=== PATIENT | female | born 1995 | race Caucasian/White ===

== ENCOUNTER → 2017-10-31 03:28 | Observation (INO) ==
[2017-10-31 01:51] LABS: Bilirubin,Urine Small (Negative); Blood,Urine Negative (Negative); Clarity,Urine Cloudy (Clear); Color,Urine Yellow (Yellow); Glucose,Urine (UA) Normal (Normal); Ketones,Urine 15 mg/dL (Negative); Leukocyte Esterase,Urine Negative (Negative); Nitrite,Urine Negative (Negative); Protein,Urine Trace mg/dL (Neg-Trace); Specific Gravity,Urine 1.029 (1.010-1.025); Urobilinogen,Urine Normal (Normal)
[2017-10-31 01:53] LABS: Bacteria,Urine Few per hpf (None-Few); Hyaline Casts,Urine None Seen per lpf (None-Few); Squamous Epithelial Cell,Urine Many per lpf (None-Few)
[2017-10-31 02:03] LABS: Calcium Oxalate Crystals,Urine Present
[2017-10-31 02:13] LABS: Amphetamine Screen,Urine Negative ng/mL (Cutoff=1000); Barbiturate Screen,Urine Negative ng/mL (Cutoff=200); Benzodiazepines Screen,Urine Negative ng/mL (Cutoff=200); Cannabinoid Screen,Urine Negative ng/mL (Cutoff = 50); Cocaine Screen,Urine Negative ng/mL (Cutoff= 300); Opiate Screen,Urine Negative ng/mL (Cutoff=300); Phencyclidine Screen,Urine Negative ng/mL (Cutoff=25)
--- NOTE | 2017-10-31 02:17 | OB/GYN Progress Note ---
Date of Encounter: 10/31/17 Time of Encounter: 02:15 - Assessment and Plan (1) 23 weeks gestation of Current Visit: Yes Status: Acute admitted for observation (2) Vaginal discharge during in second trimester Current Visit: Yes Status: Acute vaginosis panel collected and sent to lab Subjective - Subjective Principal diagnosis: vaginal discharge Interval history: Patient is a 22 y/o at 23w0d presents to labor and delivery with complaint of lower abdominal cramping earlier today. Patient also reports after showering she went to the bathroom and wiped and had discharge with a pink spot in it. Patient reports she had intercourse last night less than 24 hours ago. Patient reports +FM. Antepartum ROS: movement normal, no loss of fluid Objective - Vital Signs Vital Signs: Intake and Output 10/30/17 10/30/17 10/31/17 15:59 23:59 07:59 Other: Weight 80.2 kg Patient Weight 10/31/17 23:59 Weight 80.2 kg - Exam FHR: auscultation normal FHR comments: 150 bpm appropriate for gestational age. No contractions noted Auscultation: bilateral: normal Abdomen: Present: normal appearance, soft, gravid Comments: speculum exam: Moderate amount of thick white discharge noted. No blood noted. Cervix appeared to be closed. - Labs Labs: Abnormal lab results Urine Clarity Cloudy (Clear) A 10/31/17 01:00 Ur Specific [place] 1.029 (1.010-1.025) H 10/31/17 01:00 Urine Ketones 15 mg/dL (Negative) H 10/31/17 01:00 Urine Bilirubin Small (Negative) H 10/31/17 01:00 Urine Microscopic WBC 3-5 per hpf (0-3) H 10/31/17 01:00 Ur Squamous Epith Cells Many per lpf (None-Few) H 10/31/17 01:00
[2017-10-31 03:19] LABS: Candida DNA Not Detected (Not Detect); Gardnerella DNA ***DETECTED*** (Not Detect); Trichomonas DNA Not Detected (Not Detect)
== END | disposition home or self-care (01) ==
LOC: 1NENULAB
PROVIDERS: ADMIT Advanced Practice Midwife; ATTEND Advanced Practice Midwife

== ENCOUNTER → 2018-02-13 16:25 | Observation (INO) ==
--- NOTE | 2018-02-13 14:01 | OB/GYN History & Physical ---
Date of Encounter: 02/13/18 Time of Encounter: 13:57 Assessment and Plan (1) 38 weeks gestation of Current visit: Yes Status: Acute Serial vaginal exams Pain control Vaginosis panel pending Anticipate discharge home with labor precautions. Not ruptured. (2) Vaginal discharge during Current visit: Yes Status: Acute Qualifiers: Trimester: third trimester Qualified Code(s): O26.893 - Other specified related conditions, third trimester; N89.8 - Other specified noninflammatory disorders of vagina (3) Uterine contractions during Current visit: Yes Status: Acute (4) NST (non-stress test) reactive Current visit: Yes Status: Acute History of Present Illness Chief complaint: Contractions and Leaking fluid HPI: Ms. Tamez is a 23 year old at 38 weeks 0 days that presents to triage with c/o leaking fluid that began half an hour ago. She states her contractions are intensifying. She denies intercourse in the past 48 hours. She feels like she has to push. She has had a normal course. She states positive movement. She denies vaginal bleeding, headaches, vision changes, and epigastric pain. Labs: GBS negative Hep B NR HIV NR RPR neg Rubella Positive Varicella Positive Blood type A+ Past Med Surg Social Fam HX - Past Medical History Medical history: no medical history Psychiatric history: no psych history - Past Surgical History Surgical History: other Additional surgical history: T&A - Social History Smoking Status: Former smoker Smokeless Tobacco Status: No Alcohol use: none Drug use: none - Family History Mother Hx Family Cardiac Disorders: No Hx Family Respiratory Disorders: No Hx Family Cancer: No Hx Family GI Disorders: No Hx Family Endocrine Disorder: No Hx Family Neuromuscular Disorders: No Hx Family Neurologic Disorders: No Hx Family HEENT Disorders: No Hx Family Autoimmune Disorders: No Obstetrical History - Pregnancies : 1 Para: 0 Term: 0 : 0 Ab's: 0 Livin Medications and Allergies [id number]/Iron Fumarate/FA/Dss [ 19 Tablet] 1 tab PO DAILY 10/31/17 [ History] 3 Allergy/AdvReac Type Severity Reaction Status Date / Time Amoxicillin Allergy Rash Verified 01/15/18 20:37 Penicillins Allergy Rash Verified 01/15/18 20:37 Review of System OB All systems PM: reviewed and no additional remarkable complaints except as stated Exam - Constitutional Constitutional: well developed, well nourished, average body habitus, mild distress - HEENT HEENT: Normocephaly, Mucus Membranes Moist - Lungs Respiratory exam: CTAB - Cardiovascular Cardiovascular exam: RRR, +S1, +S2 - Abdomen Abdomen: Present: bowel sounds normal, gravid, non tender - Extremities Extremities exam: normal capillary refill, normal inspection, radial pulses palpable and symmetrical Deep Tendon Reflex Grade: 2+ Normal - Vulva Vulva: bilateral: normal - Vagina Vagina: Present: normal moisture - Cervix Dilation: 1 Effacement: 60 Station: -2 - Uterus Uterus exam: Present: normal size, normal contour - Anus/Rectum Anus/Rectum: Present: normal perianal skin - Comments Comments: SSE - small amount of moisture, no pooling, Negative nitrazine Results All other labs normal. - VTE Reasons for not Prescribing Prophylaxis: Treatment not Indicated - Low risk for VTE
[2018-02-13 14:26] VITALS: BP 116/70
[2018-02-13 14:53] LABS: Amphetamine Screen,Urine Negative ng/mL (Cutoff=1000); Barbiturate Screen,Urine Negative ng/mL (Cutoff=200); Benzodiazepines Screen,Urine Negative ng/mL (Cutoff=200); Cannabinoid Screen,Urine Negative ng/mL (Cutoff = 50); Cocaine Screen,Urine Negative ng/mL (Cutoff= 300); Opiate Screen,Urine Negative ng/mL (Cutoff=300); Phencyclidine Screen,Urine Negative ng/mL (Cutoff=25)
[2018-02-13 15:10] LABS: Candida DNA Not Detected (Not Detect); Gardnerella DNA DETECTED (Not Detect); Trichomonas DNA Not Detected (Not Detect)
[~2018-02-13 16:25] MED LIST: *HR* Nalbuphine 10 MG/ML AMPUL IM PRN; *HR* Nalbuphine 10 MG/ML AMPUL IVP PRN
== END | disposition home or self-care (01) ==
LOC: 1NENULAB
PROVIDERS: ADMIT Obstetrics & Gynecology; ATTEND Obstetrics & Gynecology

== ENCOUNTER 2018-02-20 23:00 | Inpatient (IN) ==
[2018-02-20] MEDS ORDERED: Ringers Solution, Lactated 1,000 ML ONE (23:09)
[2018-02-20] MEDS ORDERED: Metoclopramide 10 MG/2 ML VIAL IVP PRN (23:15)
[2018-02-20] MEDS ORDERED: Lidocaine 1% 20 ML MDV ID PRN (23:15)
[2018-02-20] MEDS ORDERED: Naloxone 0.4 MG/ML INJ IVP PRN (23:15)
[2018-02-20] MEDS ORDERED: Famotidine 20 MG/2 ML VIAL IVP PRN (23:15)
[2018-02-20] MEDS ORDERED: D5% in 0.9% NACL 1,000 ML IVC SCH (23:30)
[2018-02-20 23:34] LABS: Basophils % 0.3 %; Eosinophils % 0.3 %; Hematocrit 35.6 % (35.3-44.9); Immature Granulocytes % 1.2 % (0-4); Lymphocytes # 2.3 K/mcL (0.6-4.6); Mean Corpuscular HGB Conc 33.7 g/dL (31.6-35.5); Mean Corpuscular Hemoglobin 29.7 pg (28.0-33.3); Mean Corpuscular Volume 88.1 fL (83.0-100.0); Mean Platelet Volume 10.1 fL (9.4-12.4); Monocytes # 0.8 K/mcL (0.0-1.3); Monocytes % 5.7 %; Neutrophils # 10.2 K/mcL (1.6-8.9); Platelet Count 271 K/mcL (140-400); Red Blood Count 4.04 M/mcL (3.82-4.97); Red Cell Distribution Width 13.3 % (11.5-14.5); Segmented Neutrophils % 75.5 %
--- NOTE | 2018-02-21 00:09 | OB/GYN History & Physical ---
Date of Encounter: 02/21/18 Time of Encounter: 00:05 Assessment and Plan (1) 39 weeks gestation of Current visit: Yes Status: Acute Scheduled IOL Smith catheter placed for IOL, 30cc sterile water placed in balloon. Patient tolerated well. (2) Left ovarian cyst Current visit: Yes Status: Acute Noted during ultrasound in (3) Tobacco use affecting in third trimester, antepartum Current visit: Yes Status: Acute Patient reports smoking 1-2 cigarettes per day smoking cessation discussed with patient at this time History of Present Illness Chief complaint: Scheduled IOL HPI: Ms. Tamez is a 23 year old female presents to labor and delivery for scheduled IOL. Patient reports +FM. Denies LOF, VB or contractions. Patient denies any complications with . But reports a 9cm cyst on left ovary. Discussed POC with patient. Patient denies any questions or concerns. Blood type: A+ Rubella: Immune Hep B: Non-reactive Varicella:Positive RPR:Negative GBS: Negative Past Med Surg Social Fam HX - Past Medical History Source: patient Medical history: no medical history Psychiatric history: no psych history - Past Surgical History Surgical History: other Additional surgical history: T&A - Social History Smoking Status: Current every day smoker Packs per day: 2-3 cigs pd Smokeless Tobacco Status: No Alcohol use: none Drug use: none Current living situation: Home - Independent Activity Level: Independent ambulation Recent Out of Country Travel Within the Last 8 Weeks: No Exposure or Possible Exposure to Illness During Travel: No - Family History Mother Age: 46 Family Member Ethnicity: Non- Living Status: Still Living Hx Family Cardiac Disorders: No Hx Family Respiratory Disorders: No Hx Family Cancer: No Hx Family GI Disorders: No Hx Family Genitourinary Disorders: No Hx Family Endocrine Disorder: No Hx Family Musculoskeletal Disorders: No Hx Family Neuromuscular Disorders: No Hx Family Neurologic Disorders: No Hx Family HEENT Disorders: No Hx Family Autoimmune Disorders: No Hx Family Reproductive Disorders: No Hx Family Psychosocial Disorders: No Hx Family Medical Disorders: No Obstetrical History - Pregnancies : 1 Para: 0 Term: 0 : 0 Ab's: 0 Livin Medications and Allergies [id number]/Iron Fumarate/FA/Dss [ 19 Tablet] 1 tab PO DAILY 10/31/17 [ History] 3 Allergy/AdvReac Type Severity Reaction Status Date / Time Amoxicillin Allergy Rash Verified 01/15/18 20:37 Penicillins Allergy Rash Verified 01/15/18 20:37 Review of System OB - Constitutional Constitutional ROS IM: no chills, no fever(s), no headache(s) - Cardiovascular Cardiovascular: no chest pain, no edema, no lightheadedness, no palpitations, no syncope - Respiratory Respiratory: no cough, no dyspnea - Gastrointestinal Gastrointestinal: no abdominal pain, no constipation, no diarrhea, no heartburn , no nausea, no vomiting - Genitourinary Genitourinary: no abnormal vaginal bleeding, no dysuria, no flank pain, no urinary frequency, no urinary incontinence, no urinary urgency, no vaginal discharge, no vaginal odor, no vaginal pruritis Exam - Constitutional Constitutional: well developed, well nourished, no acute distress, average body habitus - HEENT HEENT: Normocephaly, Mucus Membranes Moist - Neck Neck exam: full ROM, supple - Lungs Respiratory exam: CTAB - Cardiovascular Cardiovascular exam: RRR, +S1, +S2 - Abdomen Abdomen: Present: bowel sounds normal, gravid, non tender - Extremities Extremities exam: full ROM, normal inspection Deep Tendon Reflex Grade: 2+ Normal - Cervix Dilation: 2 Effacement: 80 Station: -1 - Uterus Uterus exam: Present: normal size, normal contour - Anus/Rectum Anus/Rectum: Present: normal perianal skin - Comments Comments: FHR 125 bpm moderate variability +15x15 accels noted. No decels noted. Irregular contractions. Results Result Diagrams: 02/20/18 23:20 Abnormal lab results WBC 13.5 K/mcL (4.3-11.1) H 02/20/18 23:20 Neutrophils # 10.2 K/mcL (1.6-8.9) H 02/20/18 23:20 All other labs normal.
[2018-02-21 01:01] LABS: Amphetamine Screen,Urine Negative ng/mL (Cutoff=1000); Barbiturate Screen,Urine Negative ng/mL (Cutoff=200); Benzodiazepines Screen,Urine Negative ng/mL (Cutoff=200); Cannabinoid Screen,Urine Negative ng/mL (Cutoff = 50); Cocaine Screen,Urine Negative ng/mL (Cutoff= 300); Opiate Screen,Urine Negative ng/mL (Cutoff=300); Phencyclidine Screen,Urine Negative ng/mL (Cutoff=25)
[2018-02-21] MEDS ORDERED: Oxytocin 20 units/ LR 1000 mL 20 UNIT/1,000 ML BAG IVC SCH ×2 (03:15→20:30)
[2018-02-21] MEDS ORDERED: Ringers Solution, Lactated 1,000 ML ONE ×5 (03:18→17:11)
[2018-02-21] MEDS: *HR* Nalbuphine 10 MG/ML AMPUL IVP PRN ×2 (04:57→08:24)
--- NOTE | 2018-02-21 08:49 | OB Labor Progress Note ---
Date of Encounter: 02/21/18 Time of Encounter: 08:47 Labor Progress Note - Subjective Subjective: The patient reports feeling contractions. She had Nubain but is wanting an epidural. She is extremely anxious and at times hyperventilates and has panic attacks. She was very concerned that her mother was not can be with her on labor and delivery by her mother has just arrived. She went to the bathroom and after emptying her bladder she is walking back to the bed and felt small gushes of clear fluid - Vital Signs Vital Signs: afeb,VSS - Cervix Cervix: 3/80/-1 with bulgy bag of water. - Heart Tones Heart Tones: 120s baseline, CAT 2 - Candy Kitchen Candy Kitchen: Contractions every 2 minutes on 1 milliunit of Pitocin - Interventions Interventions: 39 week 1 day induction of labor. - Plan Plan: Amniotomy with large amount of thin meconium-stained amniotic fluid. IUPC placed. scalp electrode placed as patient had a variable deceleration after moving to her left side. This did respond with repositioning. Recommend early epidural. Continue induction of labor. Nursery team notified of meconium status
[2018-02-21] MEDS ORDERED: Epidural Premix (fent/bupiv) 110 ML EP ONE (09:05)
[2018-02-21] MEDS ORDERED: *HR* FentaNYL (PF) 100 MCG/2 ML VIAL ONE (09:06)
[2018-02-21] MEDS ORDERED: *HR* FentaNYL (PF) 100 MCG/2 ML VIAL EP ONE (09:51)
[2018-02-21] MEDS ORDERED: EPHEDrine 50 MG/ML VIAL IVP PRN (09:51)
--- NOTE | 2018-02-21 09:56 | Anesthesia Evaluation PreOp ---
Date of Encounter: 02/21/18 Time of Encounter: 09:53 - Past History Planned Operation: adrian Cardiac History: Denies any Significant Hx Pulmonary History: Smoker (3 cigs/day) CERNER ANALYST History: Denies Any Significant HX Other Medical History: Denies Any Significant HX Anesthesia History: No Prior Anesthetic Complications, Past Anesthesia : Yes (39 weeks, ) Alcohol Use: none Drug use: none Medications and Allergies [id number]/Iron Fumarate/FA/Dss [ 19 Tablet] 1 tab PO DAILY 10/31/17 [ History] 3 Allergy/AdvReac Type Severity Reaction Status Date / Time Amoxicillin Allergy Rash Verified 01/15/18 20:37 Penicillins Allergy Rash Verified 01/15/18 20:37 - Meds/Allergy Pre-op Review Medications Reviewed: Yes Allergies Reviewed: Yes Beta Blockers on Current Med List: No Anesthesia Results - Labs 02/20/18 23:20 Anesthesia Exam Height: 67 Weight: 91 - HEENT Pupil (Motor): Pupils equal Mallampati: II Teeth: Normal Oral Opening: Greater than 3 - CERNER ANALYST LOC: Oriented CERNER ANALYST Motor: Normal RUE, Normal LUE, Normal RLE, Normal LLE, Normal Face CERNER ANALYST Sensory: Normal: RUE, LUE, RLE, LLE, Face - Cardiac Rhythm: Regular Murmur: None JVD: No Carotid Bruit: No - Pulmonary Breath Sounds: bilateral Clear Respiratory Effort: Symmetrical Anesthesia Assess/Plan ASA Score: 2 Modified Hai Scale for Level of Consciousness: Cooperative, oriented, and tranquil Anesthetic Plan: Regional Monitoring Plan: Standard Monitors
[2018-02-21] MEDS ORDERED: Epidural Premix (fent/bupiv) 110 ML EP SCH (10:00)
[2018-02-21] MEDS ORDERED: *HR* Ropivacaine/PF 0.2% 20 ML VIAL ONE (14:44)
[2018-02-21] MEDS ORDERED: *HR* Propofol 200 MG/20 ML VIAL IVP ONE (16:01)
[2018-02-21] MEDS ORDERED: *HR* Oxytocin 10 UNIT/ML VIAL IM ONE ×2 (16:08)
[2018-02-21] MEDS ORDERED: *HR* Succinylcholine 200 MG/10 ML VIAL IVP ONE (16:10)
[2018-02-21] MEDS ORDERED: *HR* Morphine Sulfate/PF 10 MG/10 ML AMPUL ONE (16:10)
[2018-02-21] MEDS ORDERED: *HR* Phenylephrine 10 MG/ML VIAL ONE (16:11)
[2018-02-21] MEDS ORDERED: *HR* Morphine 2 MG/ML SYRINGE IVP PRN (16:56)
[2018-02-21] MEDS ORDERED: Gentamicin 80 MG in 0.9 % Sodium Chloride 100 ML IVPB ONE (17:00)
[2018-02-21] MEDS ORDERED: Ondansetron 4 MG/2 ML VIAL IVP ONE (17:02)
[2018-02-21] MEDS ORDERED: Acetaminophen IV 1,000 MG/100 ML INFUS..BTL IVPB ONE (17:02)
--- NOTE | 2018-02-21 17:49 | OB/GYN Procedure Note ---
Section - Date of procedure: 02/21/18 Preop diagnosis: category 2 FHT tracing, other (Light meconium-stained amniotic fluid, 6 cm dilation, 9 cm left ovarian cyst) Post-op diagnosis: same Procedure: section, primary low transverse, other (Left ovarian cyst aspiration, 130 mL of straw-colored fluid, left ovarian cystectomy) Surgeon: Eri Tian Blood Loss: 400 Was there an dental assistant medical assistant present: Yes Finished Goods Inspector: Deborah Mason Anesthesiologist: Carrie Schmitt General Ledger Accountant: Kwabena Aleman Anesthesia Type: Epidural section complications: none Disposition: L&D Recovery Room Specimens: Placenta (130 mL of straw-colored left ovarian cyst fluid, left ovarian cyst wall) - Infant (s) A Infant Delivery Date: 02/21/18 Infant Delivery Time: 16:06 Presentation: vertex Position: ZION Route of delivery: other Gender: Female Viability: Viable Pounds: 7 Ounces: 6 Gram Weight: 3.55 kg at 1 minute: 8 at 5 minutes: 9 Placenta: spontaneous Cord: 3 umbilical vessels - Narrative Narrative: The patient was taken to the operating room and prepped with Betadine and draped in the usual sterile fashion. Timeout was completed. The patient was tested and found to have adequate anesthesia with her epidural with anesthesia in attendance. A Pfannenstiel skin incision was made and sharply dissected down to the fascia. The fascia was sharply incised with a scalpel in the midline and bluntly extended bilaterally. The rectus muscles were bluntly bisected and the peritoneum was bluntly entered. The incision was then bluntly extended. Bladder blade was placed protected bladder. Vesicouterine peritoneum was sharply incised with Metzenbaum scissors and extended sharply bilaterally. Bladder flap was created and the bladder blade was then placed to protect the bladder. A low transverse incision was then made with the scalpel down to the amnion and this is bluntly extended bilaterally. The amnion was then entered bluntly. The infant was then delivered and bulb suctioned on the operating field. Cord was clamped and cut and the infant was handed to the nursery care team. Cord segment was obtained for gases, need for which would be determined later. The placenta was delivered spontaneous and intact. It was sent to pathology. The uterine cavity was digitally inspected and noted to be free of any retained products of conception. The uterine cavity is wiped clean with a moist lap sponge. Clamps were placed on the uterine incision. The incision was then closed using 0 Vicryl suture in a running locking fashion. This incision was then closed with a second 0 Vicryl suture in an imbricating fashion. Good hemostasis was noted. Tubes were inspected and found to be grossly normal. The right ovary had normal-appearing ovarian tissue with a small vascular sac inferiorly. The left ovary was a large, approximately 9 cm, smooth surfaced, fluid-filled, thin-walled sac. This was grasped with hemostats and the distal portion was excised with the Bovie after 130 mL was aspirated of straw-colored fluid. The cyst wall was then bluntly removed from the remaining ovarian tissue. Good hemostasis was achieved using Violette. The sac wall was then reapproximated with 3-0 Vicryl in a running locking fashion. Good hemostasis was assured. The abdomen is irrigated copiously with sterile water. Peritoneal edges and rectus muscles were inspected and good hemostasis was again noted. The fascia was closed using an 0 PDS loop in a running nonlocking fashion. Subcutaneous tissues tissue was irrigated with sterile water, hemostasis achieved, and closed with O-Stratafix in a running nonlocking fashion, . The skin was closed with 4-0 Monoicryl in a subcuticular fashion. Dermabond and mesh was used for incision coverage. Sponge count and needle counts were correct. Instrument count was off by 1 and a stat KUB was obtained intraoperatively. This was read as negative. Smith was noted to be draining clear yellow urine at the end of the procedure. Patient was taken to recovery room in stable condition.
--- NOTE | 2018-02-21 18:29 | Event Note ---
Date of Encounter: 02/21/18 Time of Encounter: 18:26 Called to labor and delivery for a category 2, nonreassuring heart rate pattern. The patient had heart tones with late decelerations down to the 50s to 70s for almost 10 minutes with contractions every 2 minutes. Pitocin had been turned off, patient ask oxygen applied and also pulled different position changes performed. Informed consent obtained to proceed with a primary section. The patient was also known to have a 9 cm left ovarian cyst and informed consent was obtained to remove this cyst at the same time.
[2018-02-21] MEDS ORDERED: Metoclopramide 10 MG/2 ML VIAL IVP PRN (20:30)
[2018-02-21] MEDS ORDERED: Sennosides 8.6 MG TABLET PO PRN (20:30)
[2018-02-21] MEDS ORDERED: Ondansetron 4 MG/2 ML VIAL IVP PRN (20:30)
[2018-02-21] MEDS ORDERED: Simethicone 80 MG TAB.CHEW PO PRN (20:30)
[2018-02-21] MEDS: Ibuprofen 600 MG TABLET PO SCH (22:43)
[2018-02-22] MEDS: *HR* OxyCODONE/APAP 5/325 TABLET PO PRN ×3 (02:08→17:46)
[2018-02-22] MEDS: Ibuprofen 600 MG TABLET PO SCH ×2 (04:52→17:45)
[2018-02-22 07:09] LABS: Basophils # 0.1 K/mcL (0.0-0.2); Basophils % 0.3 %; Eosinophils # 0.1 K/mcL (0.0-0.6); Eosinophils % 0.4 %; Hematocrit 28.9 % (35.3-44.9); Immature Granulocytes % 0.7 % (0-4); Lymphocytes # 2.2 K/mcL (0.6-4.6); Lymphocytes % 14.8 %; Mean Corpuscular HGB Conc 32.9 g/dL (31.6-35.5); Mean Corpuscular Hemoglobin 29.2 pg (28.0-33.3); Mean Corpuscular Volume 88.9 fL (83.0-100.0); Mean Platelet Volume 9.8 fL (9.4-12.4); Neutrophils # 11.4 K/mcL (1.6-8.9); Platelet Count 165 K/mcL (140-400); Red Blood Count 3.25 M/mcL (3.82-4.97); Red Cell Distribution Width 13.5 % (11.5-14.5); Segmented Neutrophils % 76.8 %
[2018-02-22 07:24] LABS: Hemoglobin 9.5 g/dL (11.5-15.4)
[2018-02-22] MEDS: Prenatal Vit/FA 1 EACH TABLET PO SCH (08:07)
--- NOTE | 2018-02-22 09:33 | OB/GYN Progress Note ---
Date of Encounter: 02/22/18 Time of Encounter: 09:31 - Assessment and Plan (1) Status post primary low transverse section Current Visit: Yes Status: Acute day 1 Continue routine care Ice when necessary Abdominal binder prn Anticipate discharge home tomorrow (2) Breast feeding status of mother Current Visit: Yes Status: Acute when necessary (3) anemia Current Visit: Yes Status: Acute Continue iron supplement daily Subjective - Subjective Principal diagnosis: s/p PLTCS Interval history: Feeling well. Out of bed without dizziness. Moderate amount of pain-using ibuprofen and Percocet. Breast-feeding every 2-3 hours. Some nipple soreness. Voiding without difficulty. Passing flatus, no BM yet. Tolerating regular diet. Patient reports: appetite normal, voiding normally, ambulating normally, no pain well controlled Cobb: doing well, nursing well Objective - Vital Signs Latest vital signs: Vital Signs Temp Pulse Resp BP Pulse Ox 02/22/18 08:16 97.5 F L 91 16 118/76 97 02/22/18 04:00 98.1 F 94 14 109/71 99 02/21/18 22:45 99.0 F 98 18 109/70 97 02/21/18 21:50 98.0 F 88 16 111/72 99 02/21/18 20:45 98.2 F 96 16 109/72 97 02/21/18 20:15 99.2 F 95 16 110/70 97 02/21/18 19:45 98.3 F 95 16 112/72 96 Intake and Output 02/21/18 02/22/18 02/22/18 23:59 07:59 15:59 Output Total 400 / 400 200 / 200 Balance -400 / -400 -200 / -200 Output: Catheter 400 / 400 200 / 200 Other: Stool Characteristics Normal for Patient Weight 84 kg Patient Weight 02/22/18 23:59 Weight 84 kg - Exam Lungs: bilateral: normal Chest: Normal S1, Normal S2 Extremities: Present: normal Abdomen: Present: normal appearance, soft Incision: Present: normal, dry, dressed Uterus: Present: normal, firm Fundal Height: 0 (Midline) - Labs Labs: Laboratory Results - last 24 hr 02/22/18 06:31 WBC 14.8 H RBC 3.25 L Hgb 9.5 L D Hct 28.9 L MCV 88.9 MCH 29.2 MCHC 32.9 RDW 13.5 Plt Count 165 MPV 9.8 Immature Gran % 0.7 Seg Neutrophils % 76.8 Lymphocytes % 14.8 Monocytes % 7.0 Eosinophils % 0.4 Basophils % 0.3 Neutrophils # 11.4 H Lymphocytes # 2.2 Monocytes # 1.0 Eosinophils # 0.1 Basophils # 0.1
[2018-02-23] MEDS: Ibuprofen 600 MG TABLET PO SCH ×2 (01:46→09:22)
[2018-02-23] MEDS: *HR* OxyCODONE/APAP 5/325 TABLET PO PRN ×2 (01:46→09:22)
[2018-02-23] MEDS: Prenatal Vit/FA 1 EACH TABLET PO SCH (09:21)
[2018-02-23 09:26] VITALS: BP 103/59
--- NOTE | 2018-02-23 09:57 | Discharge Summary ---
Date of Encounter: 02/23/18 Time of Encounter: 09:57 - Discharge Diagnosis (1) 39 weeks gestation of Priority: Primary Status: Resolved (2) Left ovarian cyst Priority: Secondary Status: Resolved (3) anemia Priority: Secondary Status: Chronic (4) Status post primary low transverse section Priority: Secondary Status: Resolved (5) Tobacco use affecting in third trimester, antepartum Priority: Secondary Status: Chronic - Discharge Medications Prescriptions: OxyCODONE/APAP 5/325 [Percocet 5/325 MG] 1 each PO Q4HR PRN 7 Days #28 tablet PRN Reason: Moderate pain 4-6 Ibuprofen [Motrin] 600 mg PO Q6HR #60 tablet Home Medications: Fjh266/Iron Fumarate/FA/Dss [ 19 Tablet] 1 tab PO DAILY 10/31/17 [ History] Ibuprofen [Motrin] 600 mg PO Q6HR #60 tablet 02/23/18 [Rx] OxyCODONE/APAP 5/325 [Percocet 5/325 MG] 1 each PO Q4HR PRN 7 Days #28 tablet [Rx] Allergies/Adverse Reactions: 3 Allergy/AdvReac Type Severity Reaction Status Date / Time Amoxicillin Allergy Rash Verified 01/15/18 20:37 Penicillins Allergy Rash Verified 01/15/18 20:37 Data Procedures and tests throughout hospitalization: Laboratory Tests 02/20/18 02/21/18 02/22/18 23:20 00:40 06:31 WBC 13.5 H 14.8 H RBC 4.04 3.25 L Hgb 12.0 9.5 L D Hct 35.6 28.9 L MCV 88.1 88.9 MCH 29.7 29.2 MCHC 33.7 32.9 RDW 13.3 13.5 Plt Count 271 165 MPV 10.1 9.8 Immature Gran % 1.2 0.7 Seg Neutrophils % 75.5 76.8 Lymphocytes % 17.0 14.8 Monocytes % 5.7 7.0 Eosinophils % 0.3 0.4 Basophils % 0.3 0.3 Neutrophils # 10.2 H 11.4 H Lymphocytes # 2.3 2.2 Monocytes # 0.8 1.0 Eosinophils # 0.0 0.1 Basophils # 0.0 0.1 Urine Opiates Screen Negative Ur Barbiturates Screen Negative Ur Phencyclidine Scrn Negative Ur Amphetamines Screen Negative U Benzodiazepines Scrn Negative Urine Cocaine Screen Negative U Marijuana (THC) Screen Negative Ur Drug Screen Interp See Below - Impressions ITS Impressions KUB X-Ray 02/21/18 16:45 IMPRESSION: Unremarkable KUB. No retained foreign body is evident. D/ / Hiram Fonseca / Hiram Fonseca Interpreting Provider: Hiram Fonseca Date of admission: 02/20/18 23:00 Primary care physician: PCP NONE - Patient Status Disposition: Home, Self-Care Condition: Good Functional capacity at discharge: independent ambulation Overall status at discharge: patient is progressing back to baseline - Discharge Instructions Follow Up With: NONE,PCP [Primary Care Provider] - Hospital Course HEAD IRRIGATOR Time Attestation: Total time spent providing and/or coordinating discharge services: Exam - Constitutional Vitals: Temp Pulse Resp BP Pulse Ox 97.7 F 86 16 103/59 99 02/23/18 07:30 02/23/18 07:30 02/23/18 07:30 02/23/18 07:30 02/22/18 20:30 General appearance IM: A&O X 3 - Respiratory Respiratory exam: Present: CTAB - Cardiovascular Cardiovascular exam IM: Present: RRR - GI/Abdominal GI/Abdominal exam IM: hypoactive bowel sounds, soft Incision: normal, dry, intact - Uterus Position: 2 Fingers Above Umbilicus - Extremities Exam Extremities exam IM: Present: full ROM - Neurological Exam Neurological exam: CN II-XII intact - VTE Documentation of Mechanical Device: Intermittent pneumatic compression device - Attending Attestation jennie marks md facog
== END 2018-02-23 11:50 | disposition home or self-care (01) | DRG 540 ==
LOC: 1NENULAB 23:00 → 1NENUOBS 02-21 19:52
PROVIDERS: ADMIT Advanced Practice Midwife; ATTEND Obstetrics & Gynecology

== ENCOUNTER → 2021-10-06 22:40 | Observation (INO) ==
[2021-10-06 21:54] LABS: Basophils % 0.5 %; Eosinophils # 0.1 K/mcL (0.0-0.6); Eosinophils % 0.9 %; Hematocrit 33.9 % (35.3-44.9); Hemoglobin 11.2 g/dL (11.5-15.4); Immature Granulocytes % 0.6 % (0-4); Lymphocytes # 1.7 K/mcL (0.6-4.6); Lymphocytes % 21.2 %; Mean Corpuscular Hemoglobin 30.1 pg (28.0-33.3); Mean Corpuscular Volume 91.1 fL (83.0-100.0); Mean Platelet Volume 9.7 fL (9.4-12.4); Monocytes # 0.6 K/mcL (0.0-1.3); Monocytes % 7.6 %; Neutrophils # 5.6 K/mcL (1.6-8.9); Platelet Count 222 K/mcL (140-400); Red Blood Count 3.72 M/mcL (3.82-4.97); Red Cell Distribution Width 13.2 % (11.5-14.5); Segmented Neutrophils % 69.2 %; White Blood Count 8.1 K/mcL (4.3-11.1)
[2021-10-06 22:19] LABS: Amorphous Sediment,Urine Few per hpf (None-Few); Bilirubin,Urine Negative (Negative); Blood,Urine Large (Negative); Clarity,Urine Turbid (Clear); Color,Urine Yellow (Yellow); Glucose,Urine (UA) Normal (Normal); Ketones,Urine Negative (Negative); Leukocyte Esterase,Urine Large (Negative); Mucus,Urine Few per lpf (None-Few); Nitrite,Urine Negative (Negative); PH,Urine 6.5 pH Units (5.0-8.0); Protein,Urine 30 mg/dL (Neg-Trace); RBC,Urine TNTC per hpf (0-3); Specific Gravity,Urine 1.024 (1.010-1.025); Squamous Epithelial Cell,Urine Moderate per hpf (None-Few); WBC,Urine 30-50 per hpf (0-3)
[~2021-10-06 22:40] MED LIST changes: -*HR* Nalbuphine 10 MG/ML AMPUL IM PRN; -*HR* Nalbuphine 10 MG/ML AMPUL IVP PRN; +Ringers Solution, Lactated 1,000 ML IVC SCH
== END | disposition home or self-care (01) ==
LOC: 1NENULAB
PROVIDERS: ADMIT Advanced Practice Midwife; ATTEND Advanced Practice Midwife

== ENCOUNTER → 2021-12-01 14:30 | Observation (INO) ==
[2021-12-01 13:39] LABS: Bilirubin,Urine Negative (Negative); Blood,Urine Negative (Negative); Clarity,Urine Turbid (Clear); Color,Urine Yellow (Yellow); Glucose,Urine (UA) Normal (Normal); Ketones,Urine Negative (Negative); Leukocyte Esterase,Urine Large (Negative); Mucus,Urine Few per lpf (None-Few); Nitrite,Urine Negative (Negative); Protein,Urine Trace mg/dL (Neg-Trace); RBC,Urine 0-3 per hpf (0-3); Specific Gravity,Urine 1.016 (1.010-1.025); Squamous Epithelial Cell,Urine Moderate per hpf (None-Few); Transitional Epi Cells,Urine Few per hpf (None-Few); Urobilinogen,Urine Normal (Normal)
[~2021-12-01 14:30] MED LIST changes: +Ondansetron ODT 4 MG TAB.RAPDIS SL PRN; -Ringers Solution, Lactated 1,000 ML IVC SCH
[2021-12-01 15:30] LABS: Candida DNA Not Detected (Not Detect); Gardnerella DNA DETECTED (Not Detect); Trichomonas DNA Not Detected (Not Detect)
== END | disposition home or self-care (01) ==
LOC: 1NENULAB
PROVIDERS: ADMIT Advanced Practice Midwife; ATTEND Advanced Practice Midwife

== ENCOUNTER → 2022-01-02 08:15 | Observation (INO) ==
[2022-01-02 05:51] LABS: Bacteria,Urine Few per hpf (None-Few); Bilirubin,Urine Negative (Negative); Blood,Urine Negative (Negative); Clarity,Urine Turbid (Clear); Color,Urine Light-Yellow (Yellow); Glucose,Urine (UA) Normal (Normal); Ketones,Urine Negative (Negative); Leukocyte Esterase,Urine Moderate (Negative); Mucus,Urine Few per lpf (None-Few); Nitrite,Urine Negative (Negative); PH,Urine 6.5 pH Units (5.0-8.0); Protein,Urine Negative (Neg-Trace); RBC,Urine 0-3 per hpf (0-3); Specific Gravity,Urine 1.014 (1.010-1.025); Squamous Epithelial Cell,Urine Few per hpf (None-Few); Urobilinogen,Urine Normal (Normal); WBC,Urine 0-3 per hpf (0-3)
[2022-01-02 07:30] LABS: Candida DNA Not Detected (Not Detect); Gardnerella DNA Not Detected (Not Detect); Trichomonas DNA Not Detected (Not Detect)
== END | disposition home or self-care (01) ==
LOC: 1NENULAB
PROVIDERS: ADMIT Advanced Practice Midwife; ATTEND Advanced Practice Midwife

== ENCOUNTER → 2022-01-13 08:22 | Observation (INO) ==
[~2022-01-13 08:22] MED LIST changes: +*HR* Nalbuphine 10 MG/ML AMPUL IM ONE; +*HR* Nalbuphine 10 MG/ML AMPUL ONE; +*HR* Promethazine 25 MG/ML VIAL IM ONE; -Ondansetron ODT 4 MG TAB.RAPDIS SL PRN
== END | disposition home or self-care (01) ==
LOC: 1NENULAB
PROVIDERS: ADMIT Advanced Practice Midwife; ATTEND Advanced Practice Midwife

== ENCOUNTER 2022-01-29 06:11 | Inpatient (IN) ==
[2022-01-28 21:55] LABS: Candida DNA Not Detected (Not Detect); Gardnerella DNA DETECTED (Not Detect); Trichomonas DNA Not Detected (Not Detect)
[~2022-01-29 06:11] MED LIST changes: -*HR* Nalbuphine 10 MG/ML AMPUL IM ONE; -*HR* Nalbuphine 10 MG/ML AMPUL ONE; -*HR* Promethazine 25 MG/ML VIAL IM ONE; +Famotidine 20 MG/2 ML VIAL IVP PRN; +Metoclopramide 10 MG/2 ML VIAL IVP PRN; +Naloxone 0.4 MG/ML INJ IVP PRN
[2022-01-29] MEDS ORDERED: Ringers Solution, Lactated 1,000 ML ONE ×3 (06:13→12:47)
[2022-01-29 06:23] LABS: Basophils % 0.5 %; Eosinophils # 0.1 K/mcL (0.0-0.6); Eosinophils % 0.6 %; Hematocrit 34.4 % (35.3-44.9); Hemoglobin 10.9 g/dL (11.5-15.4); Immature Granulocytes % 0.7 % (0-4); Lymphocytes # 1.9 K/mcL (0.6-4.6); Lymphocytes % 21.8 %; Mean Corpuscular HGB Conc 31.7 g/dL (31.6-35.5); Mean Corpuscular Hemoglobin 28.6 pg (28.0-33.3); Mean Corpuscular Volume 90.3 fL (83.0-100.0); Mean Platelet Volume 9.7 fL (9.4-12.4); Monocytes # 0.5 K/mcL (0.0-1.3); Monocytes % 6.2 %; Neutrophils # 6.2 K/mcL (1.6-8.9); Platelet Count 241 K/mcL (140-400); Red Blood Count 3.81 M/mcL (3.82-4.97); Red Cell Distribution Width 14.2 % (11.5-14.5); Segmented Neutrophils % 70.2 %; White Blood Count 8.8 K/mcL (4.3-11.1)
[2022-01-29] MEDS ORDERED: Ondansetron 4 MG/2 ML VIAL ONE ×2 (07:22→14:25)
[2022-01-29] MEDS ORDERED: *HR* Phenylephrine 10 MG/ML VIAL ONE (07:22)
[2022-01-29] MEDS ORDERED: *HR* Midazolam HCl 2 MG/2 ML VIAL ONE ×2 (07:23→08:00)
[2022-01-29] MEDS ORDERED: *HR* FentaNYL (PF) 100 MCG/2 ML VIAL ONE ×2 (07:23→14:25)
[2022-01-29] MEDS ORDERED: *HR* Morphine Sulfate/PF 10 MG/10 ML AMPUL ONE ×2 (07:23→14:25)
[2022-01-29] MEDS ORDERED: Oxytocin 30 UNIT/503 ML BAG IVC ONE (07:30)
[2022-01-29] MEDS ORDERED: Oxytocin 30 UNIT/503 ML BAG IVC SCH ×2 (07:45→20:48)
[2022-01-29] MEDS ORDERED: CeFAZolin 2,000 MG/120 ML BAG IVPB ONE (08:00)
[2022-01-29] MEDS ORDERED: flumazeniL 0.5 MG/5 ML VIAL IVP ONE (08:18)
[2022-01-29] MEDS ORDERED: MetroNIDAZOLE 500 MG/100 ML 500 MG/100 ML BAG IVPB ONE (15:21)
[2022-01-29] MEDS ORDERED: Acetaminophen IV 1,000 MG/100 ML BAG IVPB ONE (17:22)
[2022-01-29] MEDS ORDERED: Ketorolac 30 MG/ML VIAL ONE (17:35)
[2022-01-29 18:47] LABS: Amphetamine Screen,Urine Negative ng/mL (Cutoff=1000); Barbiturate Screen,Urine Negative ng/mL (Cutoff=200); Benzodiazepines Screen,Urine Negative ng/mL (Cutoff=200); Cannabinoid Screen,Urine Negative ng/mL (Cutoff = 50); Cocaine Screen,Urine Negative ng/mL (Cutoff= 300); Opiate Screen,Urine Negative ng/mL (Cutoff=300); Phencyclidine Screen,Urine Negative ng/mL (Cutoff=25)
[2022-01-29] MEDS ORDERED: Simethicone 80 MG TAB.CHEW PO PRN (20:48)
[2022-01-29] MEDS ORDERED: Rho Immune Globulin 1,500 UNIT SYRINGE IM ONE (20:48)
[2022-01-29] MEDS ORDERED: *HR* OxyCODONE Immed Rel 5 MG TABLET PO PRN (20:48)
[2022-01-29] MEDS ORDERED: Ringers Solution, Lactated 1,000 ML IVC SCH (20:48)
[2022-01-29] MEDS ORDERED: Ondansetron 4 MG/2 ML VIAL IVP PRN (20:48)
[2022-01-29] MEDS: Acetaminophen 325 MG TABLET PO SCH (21:20)
[2022-01-30] MEDS: cephALEXin 500 MG CAPSULE PO SCH ×4 (02:48→21:18)
[2022-01-30] MEDS: Ibuprofen 600 MG TABLET PO SCH ×4 (02:48→21:18)
[2022-01-30] MEDS: metroNIDAZOLE 500 MG TABLET PO SCH ×4 (02:49→21:18)
[2022-01-30 03:19] LABS: Basophils % 0.3 %; Eosinophils % 0.1 %; Hematocrit 28.8 % (35.3-44.9); Immature Granulocytes % 0.5 % (0-4); Lymphocytes # 1.2 K/mcL (0.6-4.6); Lymphocytes % 16.3 %; Mean Corpuscular HGB Conc 31.3 g/dL (31.6-35.5); Mean Corpuscular Hemoglobin 28.7 pg (28.0-33.3); Mean Corpuscular Volume 91.7 fL (83.0-100.0); Mean Platelet Volume 9.5 fL (9.4-12.4); Monocytes # 0.5 K/mcL (0.0-1.3); Monocytes % 6.6 %; Neutrophils # 5.8 K/mcL (1.6-8.9); Platelet Count 175 K/mcL (140-400); Red Blood Count 3.14 M/mcL (3.82-4.97); Red Cell Distribution Width 14.2 % (11.5-14.5); Segmented Neutrophils % 76.2 %; White Blood Count 7.6 K/mcL (4.3-11.1)
[2022-01-30] MEDS: Prenatal Vit/FA 1 EACH TABLET PO SCH (09:10)
[2022-01-30] MEDS: Acetaminophen 325 MG TABLET PO SCH ×3 (09:10→21:19)
[2022-01-30] MEDS ORDERED: Lanolin 7 G OINT...G. TP PRN (11:23)
[2022-01-30 21:07] VITALS: O2SAT 100
[2022-01-31] MEDS: Ibuprofen 600 MG TABLET PO SCH ×2 (07:00→14:49)
[2022-01-31] MEDS: Acetaminophen 325 MG TABLET PO SCH ×2 (07:00→14:50)
[2022-01-31 07:51] VITALS: BP 116/65; PULSE 86; TEMP 98.4
[2022-01-31] MEDS: metroNIDAZOLE 500 MG TABLET PO SCH ×2 (08:40→14:50)
[2022-01-31] MEDS: cephALEXin 500 MG CAPSULE PO SCH ×2 (08:40→14:50)
[2022-01-31] MEDS: Prenatal Vit/FA 1 EACH TABLET PO SCH (08:40)
[2022-01-31] MEDS ORDERED: Diphenoxylate/Atropine 1 TAB TABLET PO ONE (18:30)
== END 2022-01-31 15:30 | disposition home or self-care (01) | DRG 540 ==
LOC: 1NENULAB → 1NENUOBS 20:11
PROVIDERS: ADMIT Registered Nurse; ATTEND Registered Nurse